=== PATIENT | female | born 1955 | race Caucasian/White ===

== ENCOUNTER 2020-12-29 09:43 | Day surgery (SDC) | payer MEDICARE ==
[2020-12-29] MEDS ORDERED: Midazolam 1 MG/ML 2 ML SDV ONE ×2 (09:50→10:49)
[2020-12-29] MEDS ORDERED: Propofol 200 MG/20 ML SDV ONE ×2 (09:50→10:49)
[2020-12-29] MEDS ORDERED: fentaNYL 100 MCG/2 ML SDV ONE ×2 (09:50→10:49)
[2020-12-29] MEDS ORDERED: Lidocaine 1% with EPINEPHrine 1:100,000 50 ML MDV ONE (10:04)
[2020-12-29] MEDS ORDERED: Bupivacaine 0.5% 50 ML MDV ONE (10:04)
[2020-12-29] MEDS ORDERED: ceFAZolin 2 GM in Premix Bag 1 BAG IV ONE (11:15)
[2020-12-29] MEDS ORDERED: Sodium Chloride 0.9% 1,000 ML IV SCH ×2 (11:15)
[2020-12-29] MEDS ORDERED: Bacitracin Oint 1 GM U/D Packet ONE (12:28)
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
== END 2020-12-29 14:05 | disposition home or self-care (01) ==
LOC: JP.SDS 09:43
PROVIDERS: ATTEND Surgery
DX: S01.04XA Puncture wound with foreign body of scalp, initial encounter (principal); I10 Essential (primary) hypertension; X95.9XXA Assault by unspecified firearm discharge, initial encounter
CPT/HCPCS: 76000; J0690; J2250; J2704; J3010; J3490; J7030